=== PATIENT | female | born 1965 | race American Indian/Alaskan Native ===

== ENCOUNTER 2025-03-15 08:00 | Day surgery (SDC) | payer OTHER ==
[~2025-03-15 08:00] MED LIST: Sodium Chloride 0.9% 10 ML Syringe FLUSH PRN; Sodium Chloride 0.9% 10 ML Syringe FLUSH SCH
[2025-03-15] MEDS: Lactated Ringers 1,000 ML IV SCH (08:25)
[2025-03-15] MEDS ORDERED: Phenylephrine 1% 10 MG/ML SDV ONE (09:21)
[2025-03-15] MEDS ORDERED: Dexamethasone 4 MG/ML 5 ML MDV ONE (09:21)
[2025-03-15] MEDS ORDERED: Propofol 200 MG/20 ML SDV ONE (09:21)
[2025-03-15] MEDS ORDERED: dexmedeTOMIDine HCl 200 MCG/2 ML SDV ONE (09:21)
[2025-03-15] MEDS ORDERED: propofoL 500 MG/50 ML 50 ML ONE (09:21)
[2025-03-15] MEDS ORDERED: Ondansetron 4 MG/2 ML SDV ONE (09:21)
[2025-03-15] MEDS ORDERED: Ketamine HCL/NACL, ISO-OSM 50 MG/5 ML Syringe ONE (09:21)
[2025-03-15] MEDS ORDERED: fentaNYL 250 MCG/5 ML SDV ONE (09:23)
[2025-03-15] MEDS: EPINEPHrine 1 MG/ML SDV ONE (10:14)
[2025-03-15] MEDS ORDERED: Lactated Ringers 1,000 ML ONE (10:15)
[2025-03-15] MEDS ORDERED: Ketorolac 30 MG/ML SDV ONE (10:28)
[2025-03-15] MEDS ORDERED: Ondansetron 4 MG/2 ML SDV IVPUSH PRN (11:00)
[2025-03-15] MEDS ORDERED: fentaNYL 100 MCG/2 ML SDV IVPUSH PRN (11:00)
== END 2025-03-15 13:38 | disposition home or self-care (01) ==
LOC: JD.SDS 08:00 → MERGE 11:00 → JD.SDS 13:38
PROVIDERS: ATTEND Surgery
DX: K42.9 Umbilical hernia without obstruction or gangrene (principal); E11.9 Type 2 diabetes mellitus without complications; I48.0 Paroxysmal atrial fibrillation; F17.210 Nicotine dependence, cigarettes, uncomplicated; Z88.5 Allergy status to narcotic agent; Z79.84 Long term (current) use of oral hypoglycemic drugs; Z79.899 Other long term (current) drug therapy
CPT/HCPCS: 49591; 93005; A9270; J0169; J0665; J0690; J1100; J1885; J2371; J2405; J2704; J3010; J7120; 00752; 93010; C1781; J3490